=== PATIENT | female | born 1960 | race Hispanic/Latino ===

== ENCOUNTER 2016-12-26 09:36 | Outpatient (CLI) | payer OTHER ==
--- NOTE | 2016-12-27 10:52 | Mammography Report ---
BILATERAL DIGITAL SCREENING MAMMOGRAM with CAD : 12/26/16 09:36:00 CLINICAL: Routine screening. COMPARISON:03/28/14 FINDINGS: The breasts are heterogeneously dense, which may obscure small masses.Bilateral benign calcifications. No mass, architectural distortion or suspicious calcifications. IMPRESSION: No mammographic evidence of malignancy. BI-RADS CATEGORY: 2 -- Benign RECOMMENDATION: Routine mammographic screening in one year. COMMENT: Patient follow-up letters are generated by our [employer] application.
== END 2016-12-26 09:37 | disposition home or self-care (01) ==
LOC: SPVWC 09:36
PROVIDERS: ATTEND Family Medicine
DX: Z12.31 Encounter for screening mammogram for malignant neoplasm of breast (principal)
CPT/HCPCS: 77067; G0202

== ENCOUNTER 2018-01-01 09:23 | Outpatient (CLI) | payer OTHER ==
--- NOTE | 2018-01-02 15:41 | Mammography Report ---
BILATERAL DIGITAL SCREENING MAMMOGRAM with CAD : 01/01/18 09:23:00 CLINICAL: Routine screening. COMPARISON:12/26/16 FINDINGS: The breasts are heterogeneously dense, which may obscure small masses. No mass, architectural distortion or suspicious calcifications. IMPRESSION: No mammographic evidence of malignancy. BI-RADS CATEGORY: 2 -- Benign RECOMMENDATION: Routine mammographic screening in one year. COMMENT: Patient follow-up letters are generated by our [employer] application.
== END 2018-01-01 09:24 | disposition home or self-care (01) ==
LOC: SPVWC 09:23
PROVIDERS: ATTEND Family Medicine
DX: Z12.31 Encounter for screening mammogram for malignant neoplasm of breast (principal)
CPT/HCPCS: 77067